=== PATIENT | female | born 1945 | race Caucasian/White ===

== ENCOUNTER 2016-10-15 10:49 | Emergency (ER) | payer OTHER ==
[~2016-10-15] VITALS: Ht 154.9 cm; Wt 119.0 kg
[~2016-10-15 10:49] MED LIST: ACETAMINOPHEN650 M6 PO; ALL DAY PAIN R220 MG; AMBIEN10 MG PO; ATENOLOL50 MG PO; DICLOFENAC SOD100 MG PO; ENALAPRIL MALEA10 M1 PO; EVERFLEX; FLUOXETINE HCL20 MG PO; FUROSEMIDE40 MG PO; IMODIUM A-D2 MG; LASIX20 MG PO; LEXAPRO10 MG PO; LYRICA75 MG; Lasix PO; NEURONTIN300 MG PO; NORCO 7.5/321 TABLET PO; Naprosyn PO; PRISTIQ50 MG PO; PROCARDIA XL90 MG PO; TENORMIN50 MG PO; TYLENOL ARTHRI650 M2; Tenormin PO; Timoptic-0.5%,Isatol BOTH EYES; ULTRAM50 MG PO; VASOTEC20 MG PO; VIIBRYD40 MG PO; Vasotec PO; Viibryd PO; XALATAN2.5 ML BOTH EYES; Xalatan 0.005% Ophth BOTH EYES; [UNRECOGNIZED DRUG - OTHER]; oxyCODONE PO
[2016-10-15 13:54] LABS: ADD MIUA? YES; BILIRUBIN NEGATIVE; BLOOD SMALL; COLOR STRAW ((YELLOW)); GLUCOSE (STRIP) NEGATIVE; KETONES NEGATIVE; LEUKOCYTES NEGATIVE; NITRITE NEGATIVE; PROTEIN (STRIP) NEGATIVE; SPECIFIC GRAVITY 1.008 (1.000-1.030); UROBILINOGEN 0.2 MG/DL (0.2-1.0)
[2016-10-15 13:58] LABS: BACTERIA NONE SEEN /HPF; EPITHELIAL CELLS RARE /HPF; MUCUS NONE SEEN /LPF; RED BLOOD CELLS 0-5 /HPF (0-5); UCUL ADDED? NO; WHITE BLOOD CELLS 0-5 /HPF (0-5)
[2016-10-15] MEDS ORDERED: TYLENOL WITH C1 EACH PO (15:21)
[2016-10-15 15:45] VITALS: BP 111/79
[2016-10-16] MEDS ORDERED: LOTRISONE15 GM TP ×2 (14:12→15:59)
== END 2016-10-15 15:45 | disposition home or self-care (01) ==
LOC: EME 10:49
PROVIDERS: Emergency Medicine
DX: S80.02XA Contusion of left knee, initial encounter (principal); M79.605 Pain in left leg; W01.0XXA Fall on same level from slipping, tripping and stumbling without subsequent striking against object, initial encounter; Y92.009 Unspecified place in unspecified non-institutional (private) residence as the place of occurrence of the external cause; I10 Essential (primary) hypertension; Z95.5 Presence of coronary angioplasty implant and graft; Z95.811 Presence of heart assist device; Z87.891 Personal history of nicotine dependence
CPT/HCPCS: 73502; 73564; 81003; 99281; 99285

== ENCOUNTER 2016-10-16 10:46 | Emergency (ER) | payer OTHER ==
[~2016-10-16] VITALS: Ht 154.9 cm; Wt 115.5 kg
[~2016-10-16 10:46] MED LIST changes: +TYLENOL WITH C1 EACH PO
[2016-10-16 11:25] LABS: EOSINOPHIL (%) 0.5 % (0-5); EOSINOPHIL COUNT 0.1 K/uL (0-0.3); HEMATOCRIT 39.9 % (36.0-46.0); IMMATURE GRANULOCYTE (%) 0.5 % (0.0-0.7); IMMATURE GRANULOCYTE COUNT 0.1 K/uL; INSTRUMENT ABS NEUTROPHIL CT 13.5 K/uL; LYMPHOCYTE COUNT 0.8 K/uL (1.0-2.8); MCHC 30.1 G/DL (30.0-36.0); MEAN PLAT.VOLUME 10.4 uM^3 (9.5-12.4); MONOCYTE (%) 6.8 % (3-12); MONOCYTE COUNT 1.1 K/uL (0-0.8); NEUTROPHIL (%) 86.9 % (45-76); NEUTROPHIL COUNT 13.5 K/uL (1.8-6.4); PLATELET COUNT 335 K/uL (156-360); RBC DIS.WIDTH-CV 16.3 % (11.8-14.6); RBC DIS.WIDTH-SD 46.1 % (39-53); RED BLOOD COUNT 4.99 M/uL (3.80-5.20); WHITE BLOOD COUNT 15.5 K/uL (4.1-10.2)
[2016-10-16 11:33] LABS: CHLORIDE 107 mEq/L (99-109); POTASSIUM 3.6 mEq/L (3.7-5.4); SODIUM 142 mEq/L (136-147)
[2016-10-16 11:35] LABS: GLUCOSE 116 mg/dL (70-99)
[2016-10-16 11:37] LABS: ANION GAP 11 MEQ/L (2-14); TOTAL BILIRUBIN 1.3 mg/dL (0.0-1.0)
[2016-10-16 11:39] LABS: ALKALINE PHOSPHATASE 95 IU/L (3-129); GFR ESTIMATE (CALCULATED) > 59 mL/min/
[2016-10-16 11:40] LABS: UREA NITROGEN (BUN) 16 mg/dL (9-23)
[2016-10-16 12:31] LABS: ADD MIUA? YES; BILIRUBIN NEGATIVE; BLOOD SMALL; COLOR YELLOW ((YELLOW)); GLUCOSE (STRIP) NEGATIVE; KETONES 20; LEUKOCYTES NEGATIVE; NITRITE NEGATIVE; PROTEIN (STRIP) 30; SPECIFIC GRAVITY 1.019 (1.000-1.030)
[2016-10-16 12:42] LABS: BACTERIA NONE SEEN /HPF; EPITHELIAL CELLS RARE /HPF; GRANULAR CASTS 15-20 /LPF; HYALINE CASTS 40-50 /LPF; MUCUS 4+ /LPF; UCUL ADDED? NO; URIC ACID CRYSTALS 2+ /HPF
[2016-10-16] MEDS ORDERED: LOTRISONE15 GM TP ×2 (14:12→15:59)
[2016-10-16 16:30] VITALS: BP 133/73
== END 2016-10-16 16:45 | disposition home or self-care (01) ==
LOC: EME 10:46
PROVIDERS: Emergency Medicine
DX: B36.9 Superficial mycosis, unspecified (principal); N39.0 Urinary tract infection, site not specified; R51 Headache; R53.1 Weakness; W19.XXXA Unspecified fall, initial encounter; I10 Essential (primary) hypertension; Z87.891 Personal history of nicotine dependence
CPT/HCPCS: 70450; 71010; 80053; 81003; 85025; 93005; 99281; 99284; G8978 GP CK; G8979 GP CI; G8987 GO CM; G8988 GO CJ

== ENCOUNTER 2017-02-09 10:27 | Emergency (ER) | payer OTHER ==
[~2017-02-09] VITALS: Ht 157.5 cm; Wt 109.4 kg
[~2017-02-09 10:27] MED LIST changes: -LEXAPRO10 MG PO; +LEXAPRO20 MG PO; +LOTRISONE15 GM TP; +NORCO 5/3251 TABLET PO; -NORCO 7.5/321 TABLET PO
[2017-02-09 11:52] LABS: EOSINOPHIL (%) 2.2 % (0-5); EOSINOPHIL COUNT 0.2 K/uL (0-0.3); HEMATOCRIT 39.1 % (36.0-46.0); IMMATURE GRANULOCYTE (%) 0.5 % (0.0-0.7); IMMATURE GRANULOCYTE COUNT 0.1 K/uL; INSTRUMENT ABS NEUTROPHIL CT 7.1 K/uL; LYMPHOCYTE COUNT 1.3 K/uL (1.0-2.8); MCH 28.4 PG (29.0-34.0); MCHC 32.7 G/DL (30.0-36.0); MCV 86.7 FL (83-99); MEAN PLAT.VOLUME 10.3 uM^3 (9.5-12.4); MONOCYTE (%) 9.7 % (3-12); MONOCYTE COUNT 0.9 K/uL (0-0.8); NEUTROPHIL (%) 74.1 % (45-76); NEUTROPHIL COUNT 7.1 K/uL (1.8-6.4); PLATELET COUNT 250 K/uL (156-360); RBC DIS.WIDTH-CV 13.6 % (11.8-14.6); RBC DIS.WIDTH-SD 42.7 % (39-53); RED BLOOD COUNT 4.51 M/uL (3.80-5.20); WHITE BLOOD COUNT 9.6 K/uL (4.1-10.2)
[2017-02-09 11:59] LABS: CHLORIDE 109 mEq/L (99-109); POTASSIUM 3.9 mEq/L (3.7-5.4); SODIUM 141 mEq/L (136-147)
[2017-02-09 12:00] LABS: GLUCOSE 95 mg/dL (70-99)
[2017-02-09 12:02] LABS: ANION GAP 9 MEQ/L (2-14)
[2017-02-09 12:04] LABS: GFR ESTIMATE (CALCULATED) > 59 mL/min/
[2017-02-09 12:05] LABS: UREA NITROGEN (BUN) 15 mg/dL (9-23)
[2017-02-09 15:27] LABS: ADD MIUA? YES; BILIRUBIN NEGATIVE; BLOOD SMALL; GLUCOSE (STRIP) NEGATIVE; KETONES NEGATIVE; LEUKOCYTES LARGE; NITRITE POSITIVE; PROTEIN (STRIP) 30; SPECIFIC GRAVITY 1.013 (1.000-1.030); UROBILINOGEN 0.2 MG/DL (0.2-1.0)
[2017-02-09 15:42] LABS: COLOR YELLOW ((YELLOW))
[2017-02-09 15:58] LABS: BACTERIA 4+ /HPF; CALCIUM OXALATE CRYSTALS 1+ /HPF; EPITHELIAL CELLS RARE /HPF; MUCUS RARE /LPF; RED BLOOD CELLS 0-5 /HPF (0-5); UCUL ADDED? YES; WHITE BLOOD CELLS TNTC /HPF (0-5)
[2017-02-10 01:11] VITALS: BP 108/62
[2017-02-10] MEDS ORDERED: AMITRIPTYLINE100 MG PO (14:16)
[2017-02-10] MEDS ORDERED: MELOXICAM15 MG PO (14:17)
== END 2017-02-10 01:12 | disposition home or self-care (01) ==
LOC: EME 10:27
PROVIDERS: Emergency Medicine
DX: N39.0 Urinary tract infection, site not specified (principal); R41.0 Disorientation, unspecified; M19.90 Unspecified osteoarthritis, unspecified site; M79.604 Pain in right leg; W18.30XA Fall on same level, unspecified, initial encounter; J44.9 Chronic obstructive pulmonary disease, unspecified; Z87.891 Personal history of nicotine dependence; F32.9 Major depressive disorder, single episode, unspecified; F41.9 Anxiety disorder, unspecified; Z98.1 Arthrodesis status
CPT/HCPCS: 70450; 73502; 80048; 81003; 85025; 87077; 87086; 87186; 93005; 99281; 99285; G8978 GP CK; G8979 CJ; G8987 CK; G8988 GO CJ

== ENCOUNTER 2017-02-10 10:47 | Inpatient (IN) | payer OTHER ==
[~2017-02-10] VITALS: Ht 158.8 cm; Wt 107.9 kg
[2017-02-10 11:27] LABS: INTER. NORMALIZED RATIO 1.2; PROTHROMBIN TIME 12.8 SEC (10.2-12.9)
[2017-02-10 11:30] LABS: PTT 20.1 SEC (25-37)
[2017-02-10 11:52] LABS: ADD MIUA? YES; BILIRUBIN NEGATIVE; BLOOD SMALL; GLUCOSE (STRIP) NEGATIVE; KETONES 20; LEUKOCYTES MODERATE; NITRITE POSITIVE; PROTEIN (STRIP) 100; SPECIFIC GRAVITY 1.016 (1.000-1.030); UROBILINOGEN 0.2 MG/DL (0.2-1.0)
[2017-02-10 11:53] LABS: COLOR DK YELLOW ((YELLOW))
[2017-02-10 11:59] LABS: EOSINOPHIL (%) 1.6 % (0-5); EOSINOPHIL COUNT 0.2 K/uL (0-0.3); HEMATOCRIT 38.1 % (36.0-46.0); IMMATURE GRANULOCYTE (%) 0.5 % (0.0-0.7); IMMATURE GRANULOCYTE COUNT 0.1 K/uL; INSTRUMENT ABS NEUTROPHIL CT 7.8 K/uL; MCH 28.7 PG (29.0-34.0); MCHC 32.8 G/DL (30.0-36.0); MCV 87.4 FL (83-99); MEAN PLAT.VOLUME 10.4 uM^3 (9.5-12.4); MONOCYTE (%) 9.3 % (3-12); MONOCYTE COUNT 0.9 K/uL (0-0.8); NEUTROPHIL (%) 77.9 % (45-76); NEUTROPHIL COUNT 7.8 K/uL (1.8-6.4); PLATELET COUNT 264 K/uL (156-360); RBC DIS.WIDTH-CV 13.5 % (11.8-14.6); RBC DIS.WIDTH-SD 42.8 % (39-53); RED BLOOD COUNT 4.36 M/uL (3.80-5.20)
[2017-02-10 12:05] LABS: BACTERIA 3+ /HPF; BUDDING YEAST 4+; EPITHELIAL CELLS RARE /HPF; MUCUS 4+ /LPF; RED BLOOD CELLS 30-40 /HPF (0-5); UCUL ADDED? YES; WHITE BLOOD CELLS TNTC /HPF (0-5); WHITE BLOOD CELLS CLUMP MANY /HPF (0-5)
[2017-02-10 12:11] LABS: CHLORIDE 110 mEq/L (99-109); POTASSIUM 3.7 mEq/L (3.7-5.4); SODIUM 144 mEq/L (136-147)
[2017-02-10 12:12] LABS: MAGNESIUM 1.9 mg/dL (1.3-2.7)
[2017-02-10 12:13] LABS: GLUCOSE 102 mg/dL (70-99)
[2017-02-10 12:15] LABS: ANION GAP 9 MEQ/L (2-14)
[2017-02-10 12:17] LABS: GFR ESTIMATE (CALCULATED) > 59 mL/min/
[2017-02-10 12:18] LABS: UREA NITROGEN (BUN) 10 mg/dL (9-23)
[2017-02-10 12:22] LABS: TROP-I INTERPRETATION NEGATIVE; TROPONIN-I 0.01 ng/mL (0.0-0.30)
[2017-02-10] MEDS ORDERED: AMITRIPTYLINE100 MG PO (14:16)
[2017-02-10] MEDS ORDERED: MELOXICAM15 MG PO (14:17)
[2017-02-10 17:09] VITALS: BP 198/96
[2017-02-10 18:25] VITALS: BP 190/80
[2017-02-10 19:39] VITALS: BP 185/79
[2017-02-10 23:26] VITALS: BP 169/77
[2017-02-11 08:16] VITALS: BP 197/85
[2017-02-11 10:00] VITALS: BP 146/69
[2017-02-11 15:59] VITALS: BP 137/86
[2017-02-12 00:23] VITALS: BP 121/59
[2017-02-12 06:49] LABS: EOSINOPHIL COUNT 0.3 K/uL (0-0.3); HEMATOCRIT 37.1 % (36.0-46.0); IMMATURE GRANULOCYTE (%) 0.4 % (0.0-0.7); INSTRUMENT ABS NEUTROPHIL CT 5.1 K/uL; LYMPHOCYTE COUNT 1.4 K/uL (1.0-2.8); MCH 27.9 PG (29.0-34.0); MCHC 31.5 G/DL (30.0-36.0); MCV 88.5 FL (83-99); MEAN PLAT.VOLUME 10.3 uM^3 (9.5-12.4); MONOCYTE (%) 11.5 % (3-12); MONOCYTE COUNT 0.9 K/uL (0-0.8); NEUTROPHIL (%) 65.4 % (45-76); NEUTROPHIL COUNT 5.1 K/uL (1.8-6.4); PLATELET COUNT 247 K/uL (156-360); RBC DIS.WIDTH-CV 13.8 % (11.8-14.6); RBC DIS.WIDTH-SD 44.4 % (39-53); RED BLOOD COUNT 4.19 M/uL (3.80-5.20); WHITE BLOOD COUNT 7.7 K/uL (4.1-10.2)
[2017-02-12 07:21] LABS: ALKALINE PHOSPHATASE 88 IU/L (3-129); ANION GAP 8 MEQ/L (2-14); CHLORIDE 109 MEQ/L (99-109); GFR ESTIMATE (CALCULATED) > 59 mL/min/; GLUCOSE 95 mg/dL (70-99); POTASSIUM 3.8 MEQ/L (3.7-5.4); SAMPLE HEMOLYSIS CHECK 0; SAMPLE ICTERIC CHECK 0; SAMPLE LIPEMIA CHECK 0; SODIUM 143 MEQ/L (136-147); TOTAL BILIRUBIN 0.5 MG/DL (0.0-1.0); UREA NITROGEN (BUN) 11 mg/dL (9-23)
[2017-02-12 07:59] VITALS: BP 172/82
[2017-02-12] MEDS ORDERED: OXYBUTYNIN CHLOR5 MG PO (14:37)
[2017-02-12] MEDS ORDERED: TENORMIN100 MG PO (14:38)
[2017-02-12] MEDS ORDERED: FERGON324 MG PO (14:39)
[2017-02-12] MEDS ORDERED: PROBIOTIC1 EAC1 PO (14:40)
[2017-02-12] MEDS ORDERED: LASIX20 MG PO (14:40)
[2017-02-12 15:58] VITALS: BP 147/70
[2017-02-12 23:32] VITALS: BP 123/60
[2017-02-13 03:42] VITALS: BP 123/57
[2017-02-13 07:09] VITALS: BP 168/74
[2017-02-13] MEDS ORDERED: CEFDINIR300 MG PO (12:33)
[2017-02-13] MEDS ORDERED: NIFEDIPINE20 MG PO (12:34)
== END 2017-02-13 15:11 | DRG 689 ==
LOC: EME 10:47 → EDOF 13:21 → 3EAST 13:21 → EDOF 13:21 → ENRESERV 13:27 → CANRESERV 13:27 → ENRESERV 13:35 → 3EAST 16:44
PROVIDERS: Emergency Medicine; Hospitalist
DX: N39.0 Urinary tract infection, site not specified (principal); G93.40 Encephalopathy, unspecified; F05 Delirium due to known physiological condition; Z68.41 Body mass index [BMI] 40.0-44.9, adult; R44.3 Hallucinations, unspecified; I10 Essential (primary) hypertension; M85.88 Other specified disorders of bone density and structure, other site; F32.9 Major depressive disorder, single episode, unspecified; B96.1 Klebsiella pneumoniae [K. pneumoniae] as the cause of diseases classified elsewhere; J44.9 Chronic obstructive pulmonary disease, unspecified; E66.9 Obesity, unspecified; Z87.440 Personal history of urinary (tract) infections; Z87.891 Personal history of nicotine dependence; R53.1 Weakness; R29.6 Repeated falls
CPT/HCPCS: 70450; 71010; 73502; 80048; 80053; 81003; 83735; 84484; 85025; 85610; 85730; 87040; 87077; 87086 GA; 87186; 93005; 99281; 99285; G0378; J0360; J0696; J1650; J7030; J7050

== ENCOUNTER 2017-02-11 11:06 | Inpatient (IN) | payer OTHER ==
[~2017-02-11] VITALS: Ht 154.9 cm; Wt 107.8 kg
[~2017-02-11 11:06] MED LIST changes: +AMITRIPTYLINE100 MG PO; +MELOXICAM15 MG PO
[2017-02-12] MEDS ORDERED: OXYBUTYNIN CHLOR5 MG PO (14:37)
[2017-02-12] MEDS ORDERED: TENORMIN100 MG PO (14:38)
[2017-02-12] MEDS ORDERED: FERGON324 MG PO (14:39)
[2017-02-12] MEDS ORDERED: LASIX20 MG PO (14:40)
[2017-02-12] MEDS ORDERED: PROBIOTIC1 EAC1 PO (14:40)
[2017-02-13] MEDS ORDERED: CEFDINIR300 MG PO (12:33)
[2017-02-13] MEDS ORDERED: NIFEDIPINE20 MG PO (12:34)
[2017-02-13 15:39] VITALS: BP 113/68
[2017-02-13 23:09] VITALS: BP 121/60
[2017-02-14 04:59] VITALS: BP 131/60
[2017-02-14 05:44] LABS: HEMATOCRIT 36.8 % (36.0-46.0); MCH 29.4 PG (29.0-34.0); MCHC 33.2 G/DL (30.0-36.0); MCV 88.7 FL (83-99); MEAN PLAT.VOLUME 10.3 uM^3 (9.5-12.4); PLATELET COUNT 259 K/uL (156-360); RBC DIS.WIDTH-CV 13.6 % (11.8-14.6); RED BLOOD COUNT 4.15 M/uL (3.80-5.20); WHITE BLOOD COUNT 6.8 K/uL (4.1-10.2)
[2017-02-14 06:18] LABS: ALKALINE PHOSPHATASE 88 IU/L (3-129); ANION GAP 6 MEQ/L (2-14); CHLORIDE 105 MEQ/L (99-109); GFR ESTIMATE (CALCULATED) > 59 mL/min/; GLUCOSE 100 mg/dL (70-99); SAMPLE HEMOLYSIS CHECK 0; SAMPLE ICTERIC CHECK 0; SAMPLE LIPEMIA CHECK 0; SODIUM 140 MEQ/L (136-147); TOTAL BILIRUBIN 0.4 MG/DL (0.0-1.0); UREA NITROGEN (BUN) 14 mg/dL (9-23)
[2017-02-14 15:24] VITALS: BP 139/68
[2017-02-15 06:30] VITALS: BP 149/70
[2017-02-15 15:30] VITALS: BP 120/56
[2017-02-16 05:59] VITALS: BP 164/78
[2017-02-16 15:49] VITALS: BP 147/67
[2017-02-17 05:38] VITALS: BP 134/61
[2017-02-17 15:15] VITALS: BP 122/57
[2017-02-18 05:08] VITALS: BP 134/72
[2017-02-18 15:27] VITALS: BP 135/63
[2017-02-19 05:06] VITALS: BP 123/67
[2017-02-19 15:29] VITALS: BP 112/52
[2017-02-20 05:48] VITALS: BP 119/58
[2017-02-20 15:35] VITALS: BP 116/53
[2017-02-21 05:17] VITALS: BP 113/56
[2017-02-21 15:16] VITALS: BP 111/53
[2017-02-22 05:19] VITALS: BP 138/67
[2017-02-22 15:56] VITALS: BP 127/59
[2017-02-23 05:39] VITALS: BP 130/70
[2017-02-23 15:28] VITALS: BP 126/58
[2017-02-24 05:42] VITALS: BP 137/66
[2017-02-24 15:11] VITALS: BP 128/60
[2017-02-25 04:45] VITALS: BP 131/57
[2017-02-25 13:00] VITALS: BP 129/77
[2017-02-25 14:35] LABS: HEMATOCRIT 37.3 % (36.0-46.0); MCH 29.2 PG (29.0-34.0); MCHC 32.7 G/DL (30.0-36.0); MCV 89.2 FL (83-99); MEAN PLAT.VOLUME 10.4 uM^3 (9.5-12.4); PLATELET COUNT 322 K/uL (156-360); RBC DIS.WIDTH-SD 45.2 % (39-53); RED BLOOD COUNT 4.18 M/uL (3.80-5.20); WHITE BLOOD COUNT 7.3 K/uL (4.1-10.2)
[2017-02-25 15:08] LABS: ALKALINE PHOSPHATASE 97 IU/L (3-129); ANION GAP 4 MEQ/L (2-14); CHLORIDE 107 MEQ/L (99-109); GFR ESTIMATE (CALCULATED) > 59 mL/min/; GLUCOSE 98 mg/dL (70-99); POTASSIUM 4.5 MEQ/L (3.7-5.4); SAMPLE HEMOLYSIS CHECK 1; SAMPLE ICTERIC CHECK 0; SAMPLE LIPEMIA CHECK 0; SODIUM 140 MEQ/L (136-147); TOTAL BILIRUBIN 0.3 MG/DL (0.0-1.0); UREA NITROGEN (BUN) 22 mg/dL (9-23)
[2017-02-26 05:47] VITALS: BP 133/63
[2017-02-26 15:35] VITALS: BP 123/61
[2017-02-27 05:03] VITALS: BP 141/62
[2017-02-27 15:19] VITALS: BP 136/65
[2017-02-28 05:24] VITALS: BP 134/83
[2017-02-28 15:50] VITALS: BP 123/73
[2017-03-01 05:37] VITALS: BP 113/57
[2017-03-01 15:16] VITALS: BP 140/94
[2017-03-02 05:32] VITALS: BP 121/59
[2017-03-02 15:13] VITALS: BP 134/59
[2017-03-03 05:53] VITALS: BP 140/71
[2017-03-03 15:17] VITALS: BP 102/62
[2017-03-04 04:08] VITALS: BP 128/59
[2017-03-04 15:11] VITALS: BP 131/53
[2017-03-05 04:42] VITALS: BP 132/83
[2017-03-05 05:26] LABS: HEMATOCRIT 35.5 % (36.0-46.0); MCH 28.1 PG (29.0-34.0); MCHC 31.5 G/DL (30.0-36.0); MCV 89.2 FL (83-99); MEAN PLAT.VOLUME 10.1 uM^3 (9.5-12.4); PLATELET COUNT 246 K/uL (156-360); RBC DIS.WIDTH-CV 14.1 % (11.8-14.6); RBC DIS.WIDTH-SD 45.8 % (39-53); RED BLOOD COUNT 3.98 M/uL (3.80-5.20); WHITE BLOOD COUNT 7.2 K/uL (4.1-10.2)
[2017-03-05 05:47] LABS: ANION GAP 8 MEQ/L (2-14); CHLORIDE 110 MEQ/L (99-109); POTASSIUM 4.3 MEQ/L (3.7-5.4); SAMPLE HEMOLYSIS CHECK 0; SAMPLE ICTERIC CHECK 0; SAMPLE LIPEMIA CHECK 0; SODIUM 142 MEQ/L (136-147); TOTAL BILIRUBIN 0.3 MG/DL (0.0-1.0)
[2017-03-05 05:53] LABS: ALKALINE PHOSPHATASE 111 IU/L (3-129); GFR ESTIMATE (CALCULATED) > 59 mL/min/; GLUCOSE 86 mg/dL (70-99); UREA NITROGEN (BUN) 16 mg/dL (9-23)
[2017-03-05] MEDS ORDERED: NEURONTIN300 MG PO (08:41)
[2017-03-05] MEDS ORDERED: Lidoderm 5% Patch TD (08:41)
[2017-03-05] MEDS ORDERED: POLYETHYLENE GL17 GM PO (08:41)
[2017-03-05] MEDS ORDERED: XALATAN2.5 ML BOTH EYES (08:41)
[2017-03-05] MEDS ORDERED: LASIX20 MG PO (08:41)
[2017-03-05] MEDS ORDERED: NORCO 5/3251 TABLET PO (08:41)
[2017-03-05] MEDS ORDERED: ATENOLOL25 MG PO (08:41)
[2017-03-05] MEDS ORDERED: FERGON324 MG PO (08:41)
[2017-03-05] MEDS ORDERED: NIFEDIPINE ER90 MG PO (08:41)
[2017-03-05] MEDS ORDERED: MELOXICAM15 MG PO (08:41)
[2017-03-05] MEDS ORDERED: OXYBUTYNIN CHLOR5 MG PO (08:41)
[2017-03-05] MEDS ORDERED: SENNA PLUS TAB1 EACH PO (08:41)
[2017-03-05 16:00] VITALS: BP 146/70
[2017-03-06 05:27] VITALS: BP 113/69
== END 2017-03-06 10:56 | disposition home health service (06) | DRG 945 ==
LOC: 3WEST 11:06 → ENPENDDIS 03-04 → 3WEST 03-06 10:56
PROVIDERS: Hospitalist; Physical Medicine & Rehabilitation Pain Medicine
PROC: F07M0ZZ Range of Motion and Joint Mobility Treatment of Musculoskeletal System - Whole Body (ICD-10-PCS; principal; 2017-02-13)
DX: R53.1 Weakness (principal); R26.2 Difficulty in walking, not elsewhere classified; N39.0 Urinary tract infection, site not specified; E88.09 Other disorders of plasma-protein metabolism, not elsewhere classified; E77.8 Other disorders of glycoprotein metabolism; I10 Essential (primary) hypertension; F32.9 Major depressive disorder, single episode, unspecified; Z91.81 History of falling; D64.9 Anemia, unspecified; H54.41 Blindness, right eye, normal vision left eye; E66.9 Obesity, unspecified; R41.0 Disorientation, unspecified; M16.0 Bilateral primary osteoarthritis of hip; R41.89 Other symptoms and signs involving cognitive functions and awareness; Z68.41 Body mass index [BMI] 40.0-44.9, adult; M85.80 Other specified disorders of bone density and structure, unspecified site; I49.5 Sick sinus syndrome; K59.00 Constipation, unspecified; M47.816 Spondylosis without myelopathy or radiculopathy, lumbar region; I08.3 Combined rheumatic disorders of mitral, aortic and tricuspid valves
CPT/HCPCS: 72148; 73721; 80053; 85027; 92523 GN; 93005; 93306; 97110 GO; 97530 GP; 97532 GN; J1650

== ENCOUNTER 2017-05-17 19:31 | Inpatient (IN) | payer OTHER ==
[~2017-05-17] VITALS: Ht 157.5 cm; Wt 107.0 kg
[~2017-05-17 19:31] MED LIST changes: +ATENOLOL25 MG PO; +CEFDINIR300 MG PO; +FERGON324 MG PO; +Lidoderm 5% Patch TD; +NIFEDIPINE ER90 MG PO; +NIFEDIPINE20 MG PO; +OXYBUTYNIN CHLOR5 MG PO; +POLYETHYLENE GL17 GM PO; +PROBIOTIC1 EAC1 PO; +SENNA PLUS TAB1 EACH PO; +TENORMIN100 MG PO
[2017-05-17 20:16] LABS: EOSINOPHIL (%) 0.6 % (0-5); EOSINOPHIL COUNT 0.1 K/uL (0-0.3); HEMATOCRIT 38.1 % (36.0-46.0); IMMATURE GRANULOCYTE (%) 0.4 % (0.0-0.7); IMMATURE GRANULOCYTE COUNT 0.1 K/uL; INSTRUMENT ABS NEUTROPHIL CT 8.4 K/uL; LYMPHOCYTE COUNT 2.1 K/uL (1.0-2.8); MCH 30.6 PG (29.0-34.0); MCHC 33.9 G/DL (30.0-36.0); MCV 90.3 FL (83-99); MEAN PLAT.VOLUME 10.2 uM^3 (9.5-12.4); MONOCYTE (%) 7.9 % (3-12); MONOCYTE COUNT 0.9 K/uL (0-0.8); NEUTROPHIL (%) 72.3 % (45-76); NEUTROPHIL COUNT 8.4 K/uL (1.8-6.4); PLATELET COUNT 260 K/uL (156-360); RBC DIS.WIDTH-CV 13.4 % (11.8-14.6); RBC DIS.WIDTH-SD 43.8 % (39-53); RED BLOOD COUNT 4.22 M/uL (3.80-5.20); WHITE BLOOD COUNT 11.6 K/uL (4.1-10.2)
[2017-05-17 20:30] LABS: CHLORIDE 106 mEq/L (99-109); POTASSIUM 3.3 mEq/L (3.7-5.4); SODIUM 140 mEq/L (136-147)
[2017-05-17 20:32] LABS: GLUCOSE 142 mg/dL (70-99)
[2017-05-17 20:33] LABS: ANION GAP 10 MEQ/L (2-14)
[2017-05-17 20:34] LABS: TOTAL BILIRUBIN 0.5 mg/dL (0.0-1.0)
[2017-05-17 20:35] LABS: ALKALINE PHOSPHATASE 83 IU/L (3-129)
[2017-05-17 20:36] LABS: GFR ESTIMATE (CALCULATED) > 59 mL/min/
[2017-05-17 20:37] LABS: UREA NITROGEN (BUN) 11 mg/dL (9-23)
[2017-05-17 22:06] LABS: ADD MIUA? YES; BILIRUBIN NEGATIVE; BLOOD NEGATIVE; COLOR YELLOW ((YELLOW)); GLUCOSE (STRIP) NEGATIVE; KETONES NEGATIVE; LEUKOCYTES MODERATE; NITRITE NEGATIVE; PROTEIN (STRIP) NEGATIVE; SPECIFIC GRAVITY 1.013 (1.000-1.030); UROBILINOGEN 0.2 MG/DL (0.2-1.0)
[2017-05-17 22:30] LABS: EPITHELIAL CELLS RARE /HPF; MUCUS NONE SEEN /LPF; RED BLOOD CELLS 0-5 /HPF (0-5); WHITE BLOOD CELLS 30-40 /HPF (0-5)
[2017-05-17 22:31] LABS: AMORPHOUS PHOSPHATE CRYSTALS 2+; BACTERIA 1+ /HPF; CASTS NONE SEEN /LPF; CRYSTALS PRESENT; UCUL ADDED? YES
[2017-05-17] MEDS ORDERED: TRAMADOL HCL50 MG PO (23:20)
[2017-05-17] MEDS ORDERED: LATANOPROST2.5 ML BOTH EYES (23:21)
[2017-05-17] MEDS ORDERED: HYDROCODON-ACE1 EAC7 PO (23:23)
[2017-05-17] MEDS ORDERED: ESCITALOPRAM OX10 MG PO (23:23)
[2017-05-17] MEDS ORDERED: GABAPENTIN300 MG PO (23:26)
[2017-05-17] MEDS ORDERED: ENALAPRIL MALEA20 MG PO (23:26)
[2017-05-17] MEDS ORDERED: ZOLPIDEM TARTRA10 MG PO (23:27)
[2017-05-17] MEDS ORDERED: DITROPAN5 MG PO (23:27)
[2017-05-17] MEDS ORDERED: AMLODIPINE BESY10 MG PO (23:28)
[2017-05-18 04:53] VITALS: BP 172/74
[2017-05-18 07:56] VITALS: BP 168/72
[2017-05-18 09:23] LABS: HEMATOCRIT 35.9 % (36.0-46.0); MCH 29.6 PG (29.0-34.0); MCHC 32.6 G/DL (30.0-36.0); MCV 90.9 FL (83-99); MEAN PLAT.VOLUME 9.9 uM^3 (9.5-12.4); PLATELET COUNT 271 K/uL (156-360); RBC DIS.WIDTH-CV 13.4 % (11.8-14.6); RBC DIS.WIDTH-SD 44.8 % (39-53); RED BLOOD COUNT 3.95 M/uL (3.80-5.20); WHITE BLOOD COUNT 8.9 K/uL (4.1-10.2)
[2017-05-18 09:34] LABS: ANION GAP 6 MEQ/L (2-14); CHLORIDE 112 MEQ/L (99-109); POTASSIUM 3.9 MEQ/L (3.7-5.4); SAMPLE HEMOLYSIS CHECK 0; SAMPLE ICTERIC CHECK 0; SAMPLE LIPEMIA CHECK 0; SODIUM 140 MEQ/L (136-147)
[2017-05-18 09:40] LABS: GFR ESTIMATE (CALCULATED) > 59 mL/min/; GLUCOSE 129 mg/dL (70-99); UREA NITROGEN (BUN) 7 mg/dL (9-23)
[2017-05-18 16:21] VITALS: BP 148/70
[2017-05-19 00:42] VITALS: BP 156/69
[2017-05-19 08:10] VITALS: BP 159/71
[2017-05-19] MEDS ORDERED: BACTRIM,SEPT1 TABLET PO (10:54)
== END 2017-05-19 15:10 | disposition home health service (06) | DRG 690 ==
LOC: EME 19:31 → EDOF 05-18 00:03 → 5EAST 05-18 00:03 → ENRESERV 05-18 00:15 → 5EAST 05-18 04:16 → ENPENDDIS 05-19 → 5EAST 05-19 15:10
PROVIDERS: Emergency Medicine; Hospitalist
DX: N39.0 Urinary tract infection, site not specified (principal); B96.1 Klebsiella pneumoniae [K. pneumoniae] as the cause of diseases classified elsewhere; I10 Essential (primary) hypertension; E87.2 Acidosis; E86.0 Dehydration; E66.9 Obesity, unspecified; Z68.41 Body mass index [BMI] 40.0-44.9, adult; K52.9 Noninfective gastroenteritis and colitis, unspecified; J44.9 Chronic obstructive pulmonary disease, unspecified; M19.90 Unspecified osteoarthritis, unspecified site; F32.9 Major depressive disorder, single episode, unspecified; F41.9 Anxiety disorder, unspecified; Z90.49 Acquired absence of other specified parts of digestive tract; Z90.710 Acquired absence of both cervix and uterus; Z98.1 Arthrodesis status; Z87.891 Personal history of nicotine dependence
CPT/HCPCS: 71010; 80048; 80053; 81003; 83605; 85025; 85027; 87040; 87077; 87086; 87186; 99281; 99285; J0696; J1644; J7030

== ENCOUNTER 2017-07-05 22:03 | Inpatient (IN) | payer OTHER ==
[~2017-07-05] VITALS: Ht 157.5 cm; Wt 109.9 kg
[~2017-07-05 22:03] MED LIST changes: +AMLODIPINE BESY10 MG PO; +BACTRIM,SEPT1 TABLET PO; +DITROPAN5 MG PO; +ENALAPRIL MALEA20 MG PO; +ESCITALOPRAM OX10 MG PO; +FEOSOL325 MG PO; +GABAPENTIN300 MG PO; +HYDROCODON-ACE1 EAC7 PO; +LATANOPROST2.5 ML BOTH EYES; +LORCET 5-325 M1 EACH PO; +NORVASC10 MG PO; +TRAMADOL HCL50 MG PO; +ZOLPIDEM TARTRA10 MG PO
[2017-07-06 06:04] VITALS: BP 133/63
[2017-07-06 09:00] LABS: APPEARANCE CLEAR ((CLEAR)); BILIRUBIN NEGATIVE; BLOOD NEGATIVE; COLOR STRAW ((YELLOW)); GLUCOSE (STRIP) NEGATIVE; KETONES NEGATIVE; LEUKOCYTES NEGATIVE; NITRITE NEGATIVE; PROTEIN (STRIP) NEGATIVE; SPECIFIC GRAVITY 1.009 (1.000-1.030); UROBILINOGEN 0.2 MG/DL (0.2-1.0)
[2017-07-06 10:24] LABS: HEMATOCRIT 35.2 % (36.0-46.0); HEMOGLOBIN 11.8 G/DL (11.9-15.5); MCV 93.1 FL (83-99)
[2017-07-06 11:40] VITALS: BP 96/58
[2017-07-06 15:48] VITALS: BP 109/55
[2017-07-06 18:23] VITALS: BP 104/55
[2017-07-06 19:55] VITALS: BP 117/60
[2017-07-07 00:20] VITALS: BP 95/55
[2017-07-07 04:22] VITALS: BP 121/60
[2017-07-07 06:14] LABS: CHLORIDE 110 MEQ/L (99-109); CREATININE 0.8 MG/DL (0.6-1.3); GFR ESTIMATE (CALCULATED) > 59 mL/min/; GLUCOSE 123 mg/dL (70-99); POTASSIUM 3.9 MEQ/L (3.7-5.4); SODIUM 141 MEQ/L (136-147); UREA NITROGEN (BUN) 19 mg/dL (9-23)
[2017-07-07 06:22] LABS: HEMATOCRIT 27.6 % (36.0-46.0); MCV 92.9 FL (83-99)
[2017-07-07 06:24] LABS: HEMOGLOBIN 8.8 G/DL (11.9-15.5)
[2017-07-07 08:11] VITALS: BP 93/50
[2017-07-07 12:07] VITALS: BP 111/53
[2017-07-07 14:29] LABS: APPEARANCE CLOUDY ((CLEAR)); BILIRUBIN NEGATIVE; BLOOD NEGATIVE; COLOR AMBER ((YELLOW)); GLUCOSE (STRIP) NEGATIVE; KETONES NEGATIVE; LEUKOCYTES NEGATIVE; NITRITE NEGATIVE; PROTEIN (STRIP) 30; SPECIFIC GRAVITY 1.029 (1.000-1.030); UROBILINOGEN 0.2 MG/DL (0.2-1.0)
[2017-07-07 14:38] LABS: BACTERIA NONE SEEN /HPF; EPITHELIAL CELLS RARE /HPF; MUCUS 1+ /LPF; RED BLOOD CELLS 0-5 /HPF (0-5); UCUL ADDED? YES
[2017-07-07 15:31] VITALS: BP 120/58
[2017-07-07 19:47] VITALS: BP 116/70
[2017-07-08] VITALS (7 sets, daily range): BP systolic 119–144; BP diastolic 54–64
[2017-07-08 05:35] LABS: HEMATOCRIT 22.3 % (36.0-46.0); HEMOGLOBIN 7.7 G/DL (11.9-15.5); MCV 90.3 FL (83-99)
[2017-07-09 08:20] VITALS: BP 166/68
[2017-07-09] MEDS ORDERED: OXYCODONE HCL5 MG PO (08:47)
[2017-07-09] MEDS ORDERED: ELIQUIS2.5 MG PO (08:47)
[2017-07-09] MEDS ORDERED: CELECOXIB200 MG PO (08:47)
== END 2017-07-09 14:44 | DRG 470 ==
LOC: ENRESERV 22:03 → 3WEST 07-06 05:18 → 2SOUTH 07-06 05:18 → 3WEST 07-06 11:29 → 2SOUTH 07-06 12:19 → 3WEST 07-08 07:45 → ENRESERV 07-08 07:49 → 3EAST 07-08 18:16
PROVIDERS: Orthopaedic Surgery
PROC: 0SR904A Replacement of Right Hip Joint with Ceramic on Polyethylene Synthetic Substitute, Uncemented, Open Approach (ICD-10-PCS; principal; 2017-07-06)
DX: M16.11 Unilateral primary osteoarthritis, right hip (principal); Z68.41 Body mass index [BMI] 40.0-44.9, adult; D62 Acute posthemorrhagic anemia; F33.9 Major depressive disorder, recurrent, unspecified; E66.01 Morbid (severe) obesity due to excess calories; I10 Essential (primary) hypertension; Z96.642 Presence of left artificial hip joint; F41.1 Generalized anxiety disorder; H54.61 Unqualified visual loss, right eye, normal vision left eye; I35.0 Nonrheumatic aortic (valve) stenosis; R01.1 Cardiac murmur, unspecified; J44.9 Chronic obstructive pulmonary disease, unspecified; G47.30 Sleep apnea, unspecified; R32 Unspecified urinary incontinence; M06.9 Rheumatoid arthritis, unspecified; Z87.440 Personal history of urinary (tract) infections; Z90.49 Acquired absence of other specified parts of digestive tract; Z87.891 Personal history of nicotine dependence
CPT/HCPCS: 71045; 73501; 80048; 81003; 85014; 85018; 87086; J0131; J0690; J1170; J2250; J2405; J2765; J3010; J7050